=== PATIENT | female | born 1955 ===

== ENCOUNTER 2023-06-18 14:55 | Emergency (ER) | payer MEDICARE, BC ==
[2023-06-18] MEDS ORDERED: Acetaminophen/HYDROcodone 325-5 MG Tab PO ONE (15:06)
[2023-06-18] MEDS ORDERED: Ketorolac 30 MG/ML SDV IM ONE (16:02)
== END 2023-06-18 16:20 | disposition home or self-care (01) ==
LOC: CC.ED 14:55
DX: S83.401A Sprain of unspecified collateral ligament of right knee, initial encounter (principal); Z88.8 Allergy status to other drugs, medicaments and biological substances; X50.1XXA Overexertion from prolonged static or awkward postures, initial encounter
CPT/HCPCS: 73562-RT; 96372; 99283; A9270-GY; J1885